=== PATIENT | female | born 2000 | race Caucasian/White ===

== ENCOUNTER 2021-01-18 18:50 | Emergency (ER) | payer OTHER ==
[~2021-01-18] VITALS: Ht 149.9 cm; Wt 44.7 kg
[2021-01-18 18:55] VITALS: BP 141/79
[2021-01-18] MEDS ORDERED: LIDOCAINE-MPF 1%, 5ML ONE (19:27)
[2021-01-18] MEDS ORDERED: LIDOCAINE-MPF 1%, 5ML INFIL ONE (19:30)
[2021-01-18] MEDS ORDERED: BACITRACIN OINT 500U/GM, 28GM TP ONE (20:30)
[2021-01-18] MEDS ORDERED: NEOSPORIN OINT. PKT 1 PACKET ONE ×2 (20:32→20:34)
--- NOTE | 2021-01-18 20:40 | NUR ---
pt in bed with no signs or symptoms of acute dsitress noted respirations even and unlabored, pt and family member verbalize understanding and agreement with plan of care, given dc instrcutions, wound cleaned and dressed, pt and family member educated on wound care. pt and family member verbalize understanding and agreement, verbalize readiness to dc. tech x 2 at bedside to do dressing.
[2021-01-18] MEDS ORDERED: PLEASE ENTER ALLERGIES MC SCH (21:00)
== END 2021-01-18 20:48 | disposition home or self-care (01) ==
LOC: ED 20:00
DX: S61.011A Laceration without foreign body of right thumb without damage to nail, initial encounter (principal); W26.0XXA Contact with knife, initial encounter; Y93.89 Activity, other specified; Y92.009 Unspecified place in unspecified non-institutional (private) residence as the place of occurrence of the external cause; Y99.8 Other external cause status
CPT/HCPCS: 12042; 99284